=== PATIENT | male | born 1935 | race Caucasian/White ===

== ENCOUNTER → 2017-03-04 | Outpatient (CLI) | payer MEDICARE, OTHER ==
[~2017-03-04] VITALS: Ht 182.9 cm; Wt 111.1 kg
[~2017-03-04] MED LIST: BENZ200C47 PO; CARV25TA2 PO; CARV3.122 PO; CELE200C PO; DIGO125T PO; DOXY100C PO; FLUD0.1T PO; FURO40TA4 PO; GUAI12003 PO; HYDR-3074 PO; HYDR20TA3 PO; HYDR25TA9 PO; HYDR5TAB2 PO; LEVO100T5 PO; METF-620 PO; METF500T4 PO; OMEP20CA9 PO; SIMV80TA PO; TAMS0.4C2 PO; WARF2.5T83 PO; WARF5TAB7 PO
[2017-03-04 07:39] LABS: BASO # 0.1 x10^3/uL (0.0-0.2); BASO % 1 % (0-3); EOS % 3 % (0-3); HEMATOCRIT 43.8 % (39.0-53.0); HEMOGLOBIN 14.3 g/dL (13.0-17.5); LYMPH # 1.3 x10^3/uL (1.0-4.8); LYMPH % 12 % (24-48); MEAN CORPUSCULAR HEMOGLOBIN 27 pg (25-35); MEAN CORPUSCULAR HGB CONC 33 g/dL (31-37); MEAN CORPUSCULAR VOLUME 84 fL (79-100); MONO % 10 % (0-9); NEUT % 74 % (31-73); PLATELET COUNT 172 x10^3/uL (140-400); RED BLOOD COUNT 5.22 x10^6/uL (4.30-5.70); RED CELL DISTRIBUTION WIDTH 15.6 % (11.5-14.5); WHITE BLOOD COUNT 10.3 x10^3/uL (4.0-11.0)
[2017-03-04 07:41] VITALS: BP 103/57
[2017-03-04 07:48] LABS: INR 1.3 (0.8-1.1); PROTHROMBIN TIME PATIENT 15.2 SEC (11.7-14.0)
--- NOTE | 2017-03-04 12:57 | RAD ---
Limited abdominal ultrasound 03/04/2017 Indication: Evaluate for possible paracentesis. Discussion: Limited abdominal ultrasound was performed for evaluation of ascites and possible paracentesis. Four-quadrant evaluation the abdomen demonstrates no identifiable ascites. No paracentesis was performed. Impression: No sonographic evidence of ascites
== END | disposition home or self-care (01) ==
LOC: INTRAD 06:52
PROVIDERS: ATTEND Internal Medicine
DX: R18.8 Other ascites (principal); E78.00 Pure hypercholesterolemia, unspecified; K21.9 Gastro-esophageal reflux disease without esophagitis; M19.90 Unspecified osteoarthritis, unspecified site; F17.200 Nicotine dependence, unspecified, uncomplicated; I48.91 Unspecified atrial fibrillation; E11.9 Type 2 diabetes mellitus without complications; E03.9 Hypothyroidism, unspecified; I50.9 Heart failure, unspecified; Z98.41 Cataract extraction status, right eye; Z96.653 Presence of artificial knee joint, bilateral; Z98.42 Cataract extraction status, left eye; Z96.642 Presence of left artificial hip joint; Z90.49 Acquired absence of other specified parts of digestive tract; Z87.39 Personal history of other diseases of the musculoskeletal system and connective tissue
CPT/HCPCS: 36415; 76705; 85027; 85610; C1887